=== PATIENT | male | born 2000 | race Caucasian/White ===

== ENCOUNTER → 2025-03-13 | Outpatient (CLI) | payer SELFPAY ==
--- NOTE | 2025-03-13 12:27 | US_ITS ---
PROCEDURE: TESTICULAR WITH ARTERIAL FLOW 03/13/2025 REASON FOR EXAM: EPIDIDYMITIS TECHNIQUE: TESTICULAR WITH ARTERIAL FLOW COMPARISON: None FINDINGS: RIGHT testicle: 5.4 cm x 4.1 cm x 2.1 cm The right testicle is homogeneous. Normal vascular flow to the testicle. Right epididymis: 1.3 cm x 1.1 cm x 0.9 cm LEFT testicle: 5.5 cm x 3.5 cm x 2.8 cm The left testicle is homogeneous. Normal vascular flow to the testicle. Left epididymis: 0.6 cm x 1.2 cm x 0.9 cm there is evidence of a 0.2 cm 0.3 cm 0.3 cm epididymal cyst. Other findings: No hydrocele or large varicocele. US/Testicular with Arterial Flow IMPRESSION: Small left epididymal cyst. Normal blood flow to both testicles. No sonographic evidence of epididymitis. Reading Location: [id number]
== END | disposition home or self-care (01) ==
LOC: US 12:22
PROVIDERS: Referring Provider Physician Assistant; Visit Provider Physician Assistant
DX: N45.1 Epididymitis (principal)
CPT/HCPCS: 76870; 93976